=== PATIENT | female | born 1940 | race African-American/Black ===

== ENCOUNTER 2016-09-29 14:58 | Emergency (ER) | payer OTHER ==
[2016-09-29 15:26] VITALS: TEMP 98.9; BMI 18.6
--- NOTE | 2016-09-29 16:49 | EDPRACDOC ---
- General Information Chief Complaint: Gastrostomy Tube Replacement Stated Complaint: FEEDING TUBE DISLODGED Time Seen by Provider: 09/29/16 15:42 Information Source: Patient Mode of Arrival: Car Home Medications: Home Medications Tramadol HCl [Ultram] 50 mg TUBE TID PRN 02/20/13 CITALOPRAM (anti-depressant) [Celexa] 10 mg TUBE DAILY 04/10/15 Ferrous Sulfate [Ferosul] 7 ml TUBE DAILY 04/10/15 Furosemide [Lasix] 20 mg TUBE DAILY 04/10/15 Levetiracetam [Keppra] 5 ml TUBE BID 04/10/15 CloNIDine (Antihypertensive) [Catapres-TTS 3 (0.3 mg/24 hrs)] 0.3 mg TOP Mo@ 0900 #10 patch 04/14/15 Amlodipine Besylate 10 mg TUBE DAILY 10/12/15 Cranberry 400 mg TUBE MOTUWETH 10/12/15 Metoprolol Tartrate 25 mg TUBE BID 10/12/15 Sennosides/Docusate Sodium [Senna Plus Tablet] 2 tab TUBE QHS 10/12/15 Sucralfate [Carafate] 20 ml TUBE BID 10/12/15 L.acidoph & Paracasei,B.lactis [Probiotic] 1 each TUBE DAILY 02/10/16 Magnesium Oxide 250 mg TUBE DAILY 02/10/16 Ropinirole HCl [Requip] 0.25 mg TUBE HS 02/10/16 Levofloxacin [Levaquin] 500 mg TUBE .[id number] 02/22/16 Allergies/Adverse Reactions: Allergies Allergy/AdvReac Type Severity Reaction Status Date / Time Penicillins Allergy Unknown Edema-Gener Verified 02/22/16 16:33 alized aspirin Allergy Unknown Verified 02/22/16 16:33 - History of Present 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 PT ALSO STATES "IM GETTING HUNGRY". Patient Has a Chronic/Temporary: Reports: Gastrostomy Line/Tube Is: Out Presents for Line/Tube: Replacement Associated Signs & Symptoms: Reports: None ED Past Medical History - History Reviewed Yes Nurses notes reviewed and agree except as marked Travel Outside of [place] in the Last 3 Months?: No - Patient Medical History Neurological History: Reports: Cerebrovascular Accident (Due to aneurysm, TIAs. Has dense right-sided hemiplegia and dysphagia), Seizures Cardiac History: Reports: Hypertension, Hypercholesterolemia Respiratory History: Reports: Asthma, COPD, Pneumonia GI/ History: Reports: Urinary Tract Infection, Gastroesophageal Reflux Musculoskeletal History: Reports: Arthritis Psychological History: Denies: Substance Use Disorder Additional Past Medical History: CHRONIC PAIN Surgical History: Reports: Other (Abdominal surgeries, with what appears to be prior ulcer surgery.) - Family Medical History Reports: Hypertension, Cardiac Disorders - Social Medical History Smoking Status: Current status unknown Social History: Denies: Substance Use Disorder ETOH: None Substance Abuse: None Lives With: Spouse Lives In: Home EDM Review of Systems - Review of Systems ROS Negative Except as Marked: Yes All systems reviewed and were negative except as marked Constitutional: No Symptoms Reported. negative: Fever, Chills, Weakness, Fatigue, Loss of Appetite Eyes: No Symptoms Reported. negative: Redness, Blurred Vision, Double Vision, Discharge, Pain, Light Sensitive, Photophobia Ears: No Symptoms Reported. negative: Pain, Hearing Loss, Drainage, Ear Pulling Throat: No Symptoms Reported. negative: Pain, Swelling Nose: No Symptoms Reported. negative: Congestion, Bleeding, Discharge, Injection, Swelling, Deformity, Ecchymosis, Tender, Abrasion, Laceration Mouth: No Symptoms Reported. negative: Pain, Drooling Respiratory: No Symptoms Reported. negative: Cough, Brassy Cough, Barky Cough, Shortness of Breath, Wheezing, Hemoptysis Cardiovascular: No Symptoms Reported. negative: Chest Pain, Palpitations, Syncope, Edema, Orthopnea, PND, Skin Mottling, Cyanosis Gastrointestinal: Other (GTUBE OUT). negative: Constipation, Diarrhea, Formula Intolerance, Melena, Nausea, Pain, Vomiting Genitourinary: No Symptoms Reported. negative: Dysuria, Hematuria, Frequency, Discharge, Bleeding, Testicular Pain, Neurological: No Symptoms Reported. negative: Headache, Dizziness, Seizure, Numbness, Weakness, Speech Difficulty, Gait Difficulty Musculoskeletal: No Symptoms Reported. negative: Neck, Chestwall, Ribs, Back, Shoulder, Arm, Elbow, Forearm, Wrist, Hand, Pelvis, Hip, Femur, Knee, Leg, Ankle , Foot Integumentary: No Symptoms Reported. negative: Itching, Rash, Bruising, Wound Allergic/Immunologic: No Symptoms Reported. negative: Hives, Itching Hematologic: No Symptoms Reported. negative: Lymphadenopathy, Easy Bruising, Easy Bleeding Endocrine: No Symptoms Reported. negative: Weight Gain, Weight Loss Psychiatric: No Symptoms Reported. negative: Anxiety, Depression, Hallucinations, Insomnia, Suicidal - Physical Exam Constitutional: Alert (Awake), No apparent distress Oriented to: Time, Person, Place Last recorded Vital Signs: Last Vital Signs Temp 98.9 F 09/29/16 15:23 Pulse 45 L 09/29/16 15:23 Resp 20 09/29/16 15:23 BP 151/69 09/29/16 15:23 Pulse Ox 97 09/29/16 15:23 Oxygen Pulse Oxygen Saturation 97 O2 Device Room Air Oxygen Flow Rate Fraction of Inspired Oxygen ( FIO2) - HEENT Head: Normal ( normocephalic) Eye Exam: Normal (PERRL, EOMI, Sclera white) Oropharynx: Normal (Pharynx:Moist without exudate,Gums-no swelling) Tympanic Membrane: Normal ENT EAC: Normal TMJ: Normal Nose: No Symptoms Reported (septum midline) Neck: Normal (FROM, trachea at midline) - Respiratory/Cardiovascular Respiratory: Normal - CTA (BBS clear to auscultation without adventitious sounds ) Cardiovascular: Normal (RRR without murmur, gallop or rub) - GI Auscultation: Normal (NABS) Palpation: Normal (Soft,No rebound or guarding, non distended) Tenderness: Non tender, Other (G-TUBE TAPED TO ABD AND IS OUT OF OSTOMY) Brandt's Sign: Negative - Bladder: Normal - Musculoskeletal Back: Normal (Non-Tender) Extremities: Normal (Normal tone, Pulses 2+ No cyanosis or edema, FROM) - Integumentary Skin: Normal, Warm, Dry Lymphatics: Normal (no adenopathy) - Neurologic Memory Impaired: Normal Motor Function: Normal (Normal tone, Pulses 2+ No cyanosis or edema, FROM) Cranial Nerve: Normal (CN II-X11 intact sensation, strength 5/5) Cerebellar: Normal Mood Description: Normal Perception: Normal ED Procedures - Feeding Tube Informed of risks, benefits and alternatives described: Yes Informed Consent Signed: Verbal Indications: Out Placement confirmed by: Exam, Xray Feeding Tube Notes: 18FR FEEDING TUBE REPLACED WITHOUT COMPLICATIONS ED Tube Replacement MDM - Differential Diagnosis Differential Diagnosis: Tube malfunction, Tube dislodgement - Diagnostic Imaging KUB Image interpreted by: Radiologist Diagnostic Imaging Comments: IMPRESSION: 1. There is contrast opacification of the stomach and small bowel loops confirming intraluminal placement of gastrostomy tube Decision Time to Discharge: 17:50 - Departure Disposition: Home Condition: Stable Final Diagnosis: PEG tube malfunction Instructions: How to Use and Care for Your PEG Tube (ED) Education/Counseling Given To: Patient Education/Counseling Given Regarding: Diagnosis, Treatment, Prognosis, Follow Up Referrals: None,No Provider [Primary Care Provider] - One Week
[2016-09-29] MEDS ORDERED: LIDOCAINE 2% JELLY UROJET TOP ONE (16:53)
--- NOTE | 2016-09-29 17:48 | DIRPT ---
CLINICAL DATA: Feeding tube placement EXAM: ABDOMEN - 1 VIEW COMPARISON: 08/08/2016 FINDINGS: Contrast appears to been injected into the patient's gastrostomy tube. There is opacification of the stomach and small bowel loops confirming intraluminal placement of the tube. IMPRESSION: 1. There is contrast opacification of the stomach and small bowel loops confirming intraluminal placement of gastrostomy tube. Electronically Signed By: Sandee Garnica M.D. On: 09/29/2016 17:45
[2016-09-29 18:07] VITALS: BP 148/72; PULSE 51
== END 2016-09-29 18:03 | disposition home or self-care (01) ==
LOC: ED 14:58 → EDMC 18:03
DX: K94.23 Gastrostomy malfunction (principal); Y83.3 Surgical operation with formation of external stoma as the cause of abnormal reaction of the patient, or of later complication, without mention of misadventure at the time of the procedure
CPT/HCPCS: 43760; 74000; 99283; A9270; J3490

== ENCOUNTER 2016-10-04 23:10 | Emergency (ER) | payer OTHER ==
[2016-10-04 23:10] VITALS: BMI 18.6
[2016-10-04 23:16] VITALS: TEMP 99.2
--- NOTE | 2016-10-04 23:59 | EDPRACDOC ---
- General Information Chief Complaint: Gastrostomy Tube Replacement Stated Complaint: FEEDING TUBE ISSUE Time Seen by Provider: 10/04/16 23:56 Information Source: Family Home Medications: Home Medications Tramadol HCl [Ultram] 50 mg TUBE TID PRN 02/20/13 CITALOPRAM (anti-depressant) [Celexa] 10 mg TUBE DAILY 04/10/15 Ferrous Sulfate [Ferosul] 7 ml TUBE DAILY 04/10/15 Furosemide [Lasix] 20 mg TUBE DAILY 04/10/15 Levetiracetam [Keppra] 5 ml TUBE BID 04/10/15 CloNIDine (Antihypertensive) [Catapres-TTS 3 (0.3 mg/24 hrs)] 0.3 mg TOP Mo@ 0900 #10 patch 04/14/15 Amlodipine Besylate 10 mg TUBE DAILY 10/12/15 Cranberry 400 mg TUBE MOTUWETH 10/12/15 Metoprolol Tartrate 25 mg TUBE BID 10/12/15 Sennosides/Docusate Sodium [Senna Plus Tablet] 2 tab TUBE QHS 10/12/15 Sucralfate [Carafate] 20 ml TUBE BID 10/12/15 L.acidoph & Paracasei,B.lactis [Probiotic] 1 each TUBE DAILY 02/10/16 Magnesium Oxide 250 mg TUBE DAILY 02/10/16 Ropinirole HCl [Requip] 0.25 mg TUBE HS 02/10/16 Levofloxacin [Levaquin] 500 mg TUBE .[id number] 02/22/16 Allergies/Adverse Reactions: Allergies Allergy/AdvReac Type Severity Reaction Status Date / Time Penicillins Allergy Unknown Edema-Gener Verified 02/22/16 16:33 alized aspirin Allergy Unknown Verified 02/22/16 16:33 - History of Present Illness Onset: 0 HPI: PT PRESENTS TO ED WITH AFTER G-TUBE CAME OUT. PT HAS MULTIPLE VISITS FOR SAME. PUT TUBE BACK IN GAVE MEDS WITHOUT PROBLEMS AND TAPED IT IN PLACE. HE STATED THE BALLOON WAS NOT INFLATED. BALLOON INFLATED HERE AND PT SENT FOR XRAY TO CONFIRM PLACEMENT. ON FURTHER EVALUATION OF FEEDING TUBE THE BALLOON WAS NOT INFLATED, PT HAD ALREADY BEEN TO XRAY BEFORE THE TUBE REPLACEMENT. Patient Has a Chronic/Temporary: Reports: Feeding Tube Line/Tube Is: Out Presents for Line/Tube: Replacement Associated Signs & Symptoms: Reports: None ED Past Medical History - History Reviewed Yes Nurses notes reviewed and agree except as marked Travel Outside of [place] in the Last 3 Months?: No - Patient Medical History Neurological History: Reports: Cerebrovascular Accident, Seizures Cardiac History: Reports: Hypertension, Hypercholesterolemia Respiratory History: Reports: Asthma, COPD, Pneumonia GI/ History: Reports: Urinary Tract Infection, Gastroesophageal Reflux Musculoskeletal History: Reports: Arthritis Psychological History: Denies: Depression, Substance Use Disorder Additional Past Medical History: CHRONIC PAIN Surgical History: Reports: Other (Abdominal surgeries, with what appears to be prior ulcer surgery.) - Family Medical History Reports: Hypertension, Cardiac Disorders - Social Medical History Smoking Status: Current status unknown Social History: Denies: Substance Use Disorder ETOH: None Substance Abuse: None Lives With: Spouse Lives In: Home EDM Review of Systems - Review of Systems ROS Negative Except as Marked: Yes All systems reviewed and were negative except as marked Constitutional: No Symptoms Reported. negative: Fever, Chills, Weakness, Fatigue, Loss of Appetite Eyes: No Symptoms Reported. negative: Redness, Blurred Vision, Double Vision, Discharge, Pain, Light Sensitive, Photophobia Ears: No Symptoms Reported. negative: Pain, Hearing Loss, Drainage, Ear Pulling Throat: No Symptoms Reported. negative: Pain, Swelling Nose: No Symptoms Reported. negative: Congestion, Bleeding, Discharge, Injection, Swelling, Deformity, Ecchymosis, Tender, Abrasion, Laceration Mouth: No Symptoms Reported. negative: Pain, Drooling Respiratory: No Symptoms Reported. negative: Cough, Brassy Cough, Barky Cough, Shortness of Breath, Wheezing, Hemoptysis Cardiovascular: No Symptoms Reported. negative: Chest Pain, Palpitations, Syncope, Edema, Orthopnea, PND, Skin Mottling, Cyanosis Gastrointestinal: No Symptoms Reported. negative: Pain, Constipation, Nausea, Vomiting, Diarrhea, Melena, Formula Intolerance Genitourinary: No Symptoms Reported. negative: Dysuria, Hematuria, Frequency, Discharge, Bleeding, Testicular Pain, Neurological: No Symptoms Reported. negative: Headache, Dizziness, Seizure, Numbness, Weakness, Speech Difficulty, Gait Difficulty Musculoskeletal: No Symptoms Reported. negative: Neck, Chestwall, Ribs, Back, Shoulder, Arm, Elbow, Forearm, Wrist, Hand, Pelvis, Hip, Femur, Knee, Leg, Ankle , Foot Integumentary: No Symptoms Reported. negative: Itching, Rash, Bruising, Wound Allergic/Immunologic: No Symptoms Reported. negative: Hives, Itching Hematologic: No Symptoms Reported. negative: Lymphadenopathy, Easy Bruising, Easy Bleeding Endocrine: No Symptoms Reported. negative: Weight Gain, Weight Loss Psychiatric: No Symptoms Reported. negative: Anxiety, Depression, Hallucinations, Insomnia, Suicidal - Physical Exam Constitutional: Alert (Awake), No apparent distress Oriented to: Time, Person, Place Last recorded Vital Signs: Last Vital Signs Temp 99.2 F 10/04/16 23:11 Pulse 52 L 10/04/16 23:11 Resp 18 10/04/16 23:11 BP 169/73 10/04/16 23:11 Pulse Ox 96 10/04/16 23:11 Oxygen Pulse Oxygen Saturation 96 O2 Device Room Air Oxygen Flow Rate Fraction of Inspired Oxygen ( FIO2) - HEENT Head: Normal ( normocephalic) Eye Exam: Normal (PERRL, EOMI, Sclera white) Oropharynx: Normal (Pharynx:Moist without exudate,Gums-no swelling) Tympanic Membrane: Normal ENT EAC: Normal TMJ: Normal Nose: No Symptoms Reported (septum midline) Neck: Normal (FROM, trachea at midline) - Respiratory/Cardiovascular Respiratory: Normal - CTA (BBS clear to auscultation without adventitious sounds ) Cardiovascular: Normal (RRR without murmur, gallop or rub) - GI Auscultation: Normal (NABS) Palpation: Normal (Soft,No rebound or guarding, non distended), Other (FEEDING TUBE OUT. ON FURTHER EVALUATION OF THE FEEDING TUBE THE BALLOON WAS RUPTURED. THIS TUBE WAS REMOVED AND REPLACED WITH 22F 3WAY CATHETER) Tenderness: Non tender Brandt's Sign: Negative - Musculoskeletal Back: Normal (Non-Tender) Extremities: Normal (Normal tone, Pulses 2+ No cyanosis or edema, FROM) - Integumentary Skin: Normal, Warm, Dry Lymphatics: Normal (no adenopathy) - Neurologic Memory Impaired: Normal Motor Function: Normal (Normal tone, Pulses 2+ No cyanosis or edema, FROM) Cranial Nerve: Normal (CN II-X11 intact sensation, strength 5/5) Cerebellar: Normal Mood Description: Normal Perception: Normal ED Procedures - Feeding Tube Informed of risks, benefits and alternatives described: Yes Informed Consent Signed: Verbal Indications: Out Placement confirmed by: Other (GASTRIC CONTENTS AND GASTROGRAFFIN ASPIRATED FROM TUBE AFTER REPLACEMENT. XRAY TODAY SHOWS FEEDING TUBE IN PLACE.) Feeding Tube Notes: 22FRENCH 3WAY URINARY CATHETER PLACED WITHOUT DIFFICULTY. ED Tube Replacement MDM - Differential Diagnosis Differential Diagnosis: Other (FEEDING TUBE REPLACEMENT), Tube malfunction, Tube dislodgement Decision Time to Discharge: 00:29 - Departure Disposition: Home Condition: Stable Final Diagnosis: FEDDING TUBE REPLACEMENT Instructions: How to Use and Care for Your PEG Tube (ED) Education/Counseling Given To: Patient, Family Member Education/Counseling Given Regarding: Diagnosis, Treatment, Prognosis, Follow Up Referrals: None,No Provider [Primary Care Provider] - One Week Additional Instructions: RETURN FOR WORSE OR DIFFERENT SYMPTOMS.
[2016-10-05 00:46] VITALS: BP 153/71; PULSE 58
--- NOTE | 2016-10-05 00:57 | DIRPT ---
CLINICAL DATA: G-tube placement. EXAM: ABDOMEN - 1 VIEW COMPARISON: 09/29/2016, additional prior exams reviewed FINDINGS: Single supine view the abdomen obtained after the instillation of 30 mL Gastroview. Contrast opacifies the stomach, duodenum, and proximal small bowel. No evidence of extraluminal contrast for leak. Irregular shaped density/ calcification projects over the right lower abdomen, unchanged from prior exams. IMPRESSION: Gastrostomy tube in the stomach without extravasation or leak. Electronically Signed By: Zhanna Aguayo M.D. On: 10/05/2016 00:54
== END 2016-10-05 00:47 | disposition home or self-care (01) ==
LOC: ED 23:10
DX: K94.29 Other complications of gastrostomy (principal)
CPT/HCPCS: 43760; 74000; 99283